=== PATIENT | female | born 1945 | race African-American/Black ===

== ENCOUNTER → 2016-07-25 | Day surgery (SDC) | payer MEDICARE, MEDICAID ==
[~2016-07-25] MED LIST: ACETAMINOPHEN/HYDROcodone 325 MG/5 MG TAB ONE; ANAS1TAB PO; BUPIVACAINE HCL PF 0.5% 10 ML VIAL ONE; FIORIC PO; LACTATED RINGER'S 1000 ML INJ 1,000 ML ONE; LISI-586 PO; METO50TA OR; MIDAZOLAM HCL 2 MG/2 ML VIAL ONE; ONDANSETRON HCL 4 MG/2 ML VIAL IV PUSH ONE; PROPOFOL 200 MG/20 ML AMP IV ONE; RANI150 PO; REST30CA PO; ULTR50TA PO; ceFAZolin INJ 1,000 MG VIAL ONE
--- NOTE | 2016-07-25 11:07 | PD.OP ---
cc: Jeremie Strange Jr., MD Operative Report Date of Surgery: Jul 25, 2016 Preoperative Diagnosis: left dequervains tenosynovitis Postoperative Diagnosis: same Procedure: left first dorsal extensor compartment release Anesthesia: lma Surgeon: Jeremie Strange [employer] Specialist(s): staff Resident Surgeon: none Operation and Findings: Patient was seen and evaluated preoperatively and found to have debilitating LEFT wrist dequervains tenosynovitis. More than 6 months of Increasing activity related pain that has become debilitating in the wrist and now is interfering with the ability to perform activities of daily living. During that time, the patient has failed conservative treatment such as activity modification, use of wrist brace, po NSAIDS, physical therapy, multiple steroid injections. I discussed the treatment plan with the patient who expressed verbal understanding and agrees with my recommendations. Informed consent was obtained after detailed discussion of risk and benefits including bleeding, infection, injury to arteries, nerves, and blood vessels, weakness and numbness of hand, and tendon rupture. Informed consent was obtained. Patient received IV antibiotics prior to incision. Timeout procedure was performed. LEFT upper extremity was prepped with alcohol followed by Hibiclens and draped usual sterile fashion. Patient position supine with an arm table. The radial styloid was palpated and marked. A small incision was made overlying the 1st DC. Dissection was taken down the level of the retinaculum and the 1st DC, containing APL/EPB was opened and released. There was significant synovitis of the tendons. The tendons were elevated and freed from the floor the compartment. There were no further adhesions, subsheaths, additional compartment, septum or osteophytes present. The wound was irrigated, closed 3-0 nylon at the skin. Sterile dressing was applied and the patient was placed in a well-padded soft dressing. There were no complications. Patient extubated and transferred to PACU in stable condition. Jeremie Strange Jr., MD Jul 25, 2016 11:07
== END | disposition home or self-care (01) ==
LOC: ESDC 09:23
PROVIDERS: ATTEND Orthopaedic Surgery
DX: M65.4 Radial styloid tenosynovitis [de Quervain] (principal)
CPT/HCPCS: 01810; 25000; J0690; J2250; J2405; J3010; J7120